=== PATIENT | female | born 2000 | race Hispanic/Latino ===

== ENCOUNTER 2021-08-06 09:44 | Inpatient (IN) | payer OTHER ==
[~2021-08-06 09:44] MED LIST: Bupivacaine 0.25% HCL 30 ML VIAL ONE; Bupivacaine PF 0.5% 30 ML VIAL ONE; Lidocaine 2% MPF 10 ML AMP (For Epidural Use) ONE; Terbutaline Sulfate 1 MG/ML VIAL ONE
[2021-08-06] MEDS ORDERED: hydrALAZINE 20 MG/ML VIAL SLOW IVP PRN ×2 (10:48→12:05)
[2021-08-06 11:33] LABS: Fetal Membranes Rupture RUPTURE DETECTED (No Rupture)
[2021-08-06] MEDS ORDERED: Methylergonovine 0.2 MG/ML VIAL IM PRN (12:05)
[2021-08-06] MEDS ORDERED: Promethazine HCl 25 MG/ML VIAL IM PRN (12:05)
[2021-08-06] MEDS ORDERED: Meperidine HCl/PF 25 MG/ML VIAL IM/IV PRN (12:05)
[2021-08-06] MEDS ORDERED: Ondansetron PF 4 MG/2 ML Vial IVP PRN (12:05)
[2021-08-06] MEDS ORDERED: Misoprostol 200 MCG TAB PR PRN (12:05)
[2021-08-06] MEDS ORDERED: HYDROcodone/Acetaminophen 5/325 mg Tablet PO PRN ×2 (12:05)
[2021-08-06] MEDS ORDERED: Lidocaine 1% (PF) 30 ML VIAL SC PRN (12:05)
[2021-08-06] MEDS ORDERED: Ibuprofen 800 MG TAB PO PRN (12:05)
[2021-08-06] MEDS ORDERED: Butorphanol Tartrate 1 MG/ML VIAL SLOW IVP PRN (12:05)
[2021-08-06] MEDS ORDERED: Carboprost 250 MCG/ML AMP IM PRN (12:05)
[2021-08-06] MEDS ORDERED: NS w/ Oxytocin 30 units 500 ML IV SCH ×2 (12:15)
[2021-08-06] MEDS ORDERED: Lactated Ringer's 1,000 ML IV SCH (12:15)
[2021-08-06 14:19] LABS: Hep B Surf Ag Non-Reactive S/CO (NonReactive); Syphilis Antibody Nonreactive (Nonreactive); Syphilis Antibody Index 0.07 S/CO (<1.00 Non-Reactive)
[2021-08-06 14:25] LABS: HBSAg Index 0.22 S/CO (0-0.99)
[2021-08-06 14:29] LABS: Hemoglobin 10.9 g/dL (12.0-15.5); Mean Corpuscular HGB CONC 32.8 g/dL (32.0-36.0); Mean Corpuscular Hemoglobin 27.7 pg (27.0-33.0); Mean Corpuscular Volume 84.3 fl (81.6-98.3); Mean Platelet Volume 12.3 fl (7.4-10.4); Platelet Count 153 10x3/uL (150-450); RBC Distribution Width 20.1 % (11.5-14.5); Red Blood Cell (RBC) Count 3.94 10x6/uL (3.90-5.03); White Blood Cell (WBC) Count 7.2 10x3/uL (3.5-10.5)
[2021-08-06 16:53] VITALS: BMI 32.2
[2021-08-06 17:38] LABS: SARS-CoV-2 NAA Rapid Test Not Detected (NotDetected)
[2021-08-06] MEDS: Misoprostol 100 MCG TAB VAG SCH (17:52)
[2021-08-06] MEDS: Lactated Ringer's 1,000 ML IV SCH (17:52)
[2021-08-07 07:06] LABS: #Eosinphils 0.1 10x3/uL (0.0-0.5); #Monocytes 0.4 10x3/uL (0.0-1.1); #Neutrophils 4.9 10x3/uL (1.5-8.4); %Basophils 0.5 % (0.0-2.0); %Eosinophils 0.7 % (0.0-6.0); %Lymphocytes 26.6 % (18.0-47.0); %Monocytes 5.2 % (0.0-10.0); %Neutrophils 65.9 % (40.0-75.0); Hemoglobin 11.5 g/dL (12.0-15.5); Mean Corpuscular Hemoglobin 27.6 pg (27.0-33.0); Mean Corpuscular Volume 83.7 fl (81.6-98.3); Mean Platelet Volume 11.6 fl (7.4-10.4); Platelet Count 141 10x3/uL (150-450); RBC Distribution Width 19.8 % (11.5-14.5); Red Blood Cell (RBC) Count 4.17 10x6/uL (3.90-5.03); White Blood Cell (WBC) Count 7.4 10x3/uL (3.5-10.5)
[2021-08-07 07:34] LABS: ALT (SGPT) 14 U/L (8-55); AST (SGOT) 18 U/L (5-34); Alkaline Phosphatase 223 U/L (40-100); Anion Gap 13 mmol/L (10-20); BUN (Urea Nitrogen) 7 mg/dL (7.0-18.7); Bilirubin, Total 0.3 mg/dL (0.2-1.2); Calc. Creatinine Clearance 169 mL/min (70-130); Calcium 8.6 mg/dL (7.8-10.44); Carbon Dioxide 21 mmol/L (22-29); Chloride 109 mmol/L (98-107); Glucose 77 mg/dL (70-105); Potassium 3.8 mmol/L (3.5-5.1); Sodium 139 mmol/L (136-145)
[2021-08-07] MEDS: Lactated Ringer's 1,000 ML IV SCH ×4 (07:49→13:27)
[2021-08-07] MEDS: Misoprostol 100 MCG TAB VAG SCH ×4 (07:49→18:58)
[2021-08-07] MEDS: Misoprostol 100 MCG TAB PO SCH (07:50)
[2021-08-07 10:32] LABS: Creatinine, Urine 36.34 mg/dL (47-110)
[2021-08-07] MEDS ORDERED: Fentanyl 2 mcg/Bup 0.1% Cadd 100 ML ONE (12:55)
[2021-08-07] MEDS ORDERED: Ondansetron PF 4 MG/2 ML Vial IVP PRN ×2 (14:01→22:32)
[2021-08-07] MEDS ORDERED: Hydrocerin (Eucerin) Cream 120 gm Jar TOP PRN ×2 (14:01→22:32)
[2021-08-07] MEDS ORDERED: Naloxone HCl 0.4 mg/ml Vial IVP PRN ×4 (14:01→22:32)
[2021-08-07] MEDS ORDERED: diphenhydrAMINE 50 MG/ML VIAL IVP PRN ×2 (14:01→22:32)
[2021-08-07] MEDS ORDERED: Promethazine HCl 25 MG/ML VIAL IM PRN ×2 (14:01→22:32)
[2021-08-07] MEDS ORDERED: ePHEDrine Sulfate 50 MG/10 ML VIAL SLOW IVP PRN (14:01)
[2021-08-07] MEDS ORDERED: Acetaminophen 325 MG TAB PO PRN (14:01)
[2021-08-07] MEDS ORDERED: Lactated Ringer's 500 ML IV PRN (14:01)
[2021-08-07] MEDS ORDERED: Fentanyl 2 mcg/Bupivacaine 0.1% Cassette 100 ML EPIDURAL SCH (14:15)
[2021-08-07] MEDS ORDERED: Communication Order-Pharmacy FS PRN (14:15)
[2021-08-07 15:32] LABS: Creatinine, Urine 86.73 mg/dL (47-110)
[2021-08-07] MEDS ORDERED: Magnesium Sulfate 20 gm/500 ml 20 GM/500 ML BAG ONE (17:13)
[2021-08-07] MEDS ORDERED: hydrALAZINE 20 MG/ML VIAL ONE (17:13)
[2021-08-07] MEDS ORDERED: Ondansetron PF 4 MG/2 ML Vial ONE ×2 (18:03→19:12)
[2021-08-07] MEDS ORDERED: Fentanyl 100 MCG/2 ML VIAL ONE (18:50)
[2021-08-07] MEDS ORDERED: Azithromycin 500 MG VIAL ONE (18:56)
[2021-08-07] MEDS ORDERED: Bicitra 30 ML UDCUP PO PRN (18:59)
[2021-08-07] MEDS ORDERED: Famotidine/PF 20 mg/2ml Vial SLOW IVP PRN (18:59)
[2021-08-07] MEDS ORDERED: CEFAZOLIN 2 GM in Premix Bag 1 BAG IVPB SCH (19:00)
[2021-08-07] MEDS ORDERED: Azithromycin 500 MG in Sodium Chloride 0.9% 250 ML 250 ML IVPB SCH (19:00)
[2021-08-07] MEDS ORDERED: Dexamethasone 4 mg/ml Vial ONE (19:12)
[2021-08-07] MEDS ORDERED: Morphine PF 10 MG/10 ML VIAL ONE (19:12)
[2021-08-07] MEDS ORDERED: Oxytocin 10 UNITS/ML VIAL ONE (19:13)
[2021-08-07] MEDS ORDERED: PHENYLEPHRINE-NS 100 MCG/ML 10 ML SYRINGE ONE (19:28)
[2021-08-07] MEDS ORDERED: Ketamine 50 MG/ML (10ML VIAL) ONE (19:42)
[2021-08-07] MEDS ORDERED: Promethazine HCl 25 MG SUPP PR PRN (22:32)
[2021-08-07] MEDS ORDERED: Ondansetron HCl/PF 4 MG/2 ML Vial IVP PRN (22:32)
[2021-08-07] MEDS ORDERED: Fentanyl 100 MCG/2 ML VIAL SLOW IVP PRN (22:32)
[2021-08-07] MEDS ORDERED: L&D-Morphine 4 MG/ML VIAL SLOW IVP PRN (22:32)
[2021-08-07] MEDS ORDERED: Meperidine HCl/PF 25 MG/ML VIAL SLOW IVP PRN (22:32)
[2021-08-07] MEDS ORDERED: Naloxone HCl 0.4 mg/ml Vial IV PRN (22:32)
[2021-08-07] MEDS ORDERED: Ketorolac Tromethamine 30 MG/ML VIAL IVP SCH (22:45)
[2021-08-07] MEDS ORDERED: Communication Order-Pharmacy FS SCH (22:45)
[2021-08-08] MEDS ORDERED: Magnesium Sulfate 20 gm/500 ml 20 GM/500 ML BAG ONE ×2 (02:53→13:55)
[2021-08-08] MEDS: Ketorolac Tromethamine 30 MG/ML VIAL IVP PRN ×2 (12:54→19:00)
[2021-08-08] MEDS ORDERED: Ondansetron PF 4 MG/2 ML Vial IVP PRN ×2 (14:08→22:22)
[2021-08-08] MEDS ORDERED: HYDROcodone/Acetaminophen 5/325 mg Tablet PO PRN ×3 (14:08→22:22)
[2021-08-08] MEDS ORDERED: Boostrix 0.5 ML (Tdap) VIAL IM ONE (14:08)
[2021-08-08] MEDS ORDERED: Prenatal Vitamin 1 TAB PO SCH (14:08)
[2021-08-08] MEDS ORDERED: Magnesium Sulfate 20 gm/500 ml 20 GM/500 ML BAG IVPB SCH (14:08)
[2021-08-08] MEDS ORDERED: diphenhydrAMINE 25 MG CAP PO PRN (14:08)
[2021-08-08] MEDS ORDERED: Acetaminophen/Codeine 30-300mg Tablet PO PRN (14:08)
[2021-08-08] MEDS ORDERED: Lanolin Ointment 7 GM TUBE TOP PRN (14:08)
[2021-08-08] MEDS ORDERED: Calcium Gluconate 4.6 MEQ in Sodium Chloride 0.9% 100 ML IVPB PRN (14:08)
[2021-08-08] MEDS ORDERED: Zolpidem Tartrate 5 MG TAB PO PRN (14:08)
[2021-08-08] MEDS ORDERED: hydrALAZINE 20 MG/ML VIAL SLOW IVP PRN ×2 (14:08→22:22)
[2021-08-08 14:55] LABS: Magnesium 6.5 mg/dL (1.7-2.2)
[2021-08-08] MEDS ORDERED: Simethicone Chewable 80 MG TAB PO PRN (22:22)
[2021-08-08] MEDS ORDERED: Acetaminophen 325 MG TAB PO PRN (22:22)
[2021-08-08] MEDS ORDERED: Ibuprofen 800 MG TAB PO SCH (22:30)
[2021-08-08] MEDS: Misoprostol 100 MCG TAB VAG SCH ×2 (23:12→23:13)
[2021-08-08] MEDS: Lactated Ringer's 1,000 ML IV SCH (23:13)
[2021-08-09] MEDS: Misoprostol 100 MCG TAB VAG SCH (00:21)
[2021-08-09] MEDS: HYDROcodone/Acetaminophen 5/325 mg Tablet PO PRN ×2 (01:20→09:23)
[2021-08-09] MEDS ORDERED: Ibuprofen 800 MG TAB PO SCH (06:00)
[2021-08-09] MEDS: Ibuprofen 800 MG TAB PO SCH ×3 (06:33→21:51)
[2021-08-09] MEDS: Prenatal Vitamin 1 TAB PO SCH (09:05)
[2021-08-09] MEDS ORDERED: NIFEdipine XL 30 MG TAB PO SCH (18:30)
[2021-08-10] MEDS: Ibuprofen 800 MG TAB PO SCH (05:31)
[2021-08-10] MEDS: Prenatal Vitamin 1 TAB PO SCH (08:53)
[2021-08-10 11:27] VITALS: BP 134/85; TEMP 99
== END 2021-08-10 14:49 | disposition home or self-care (01) | DRG 788 ==
LOC: CSHLD/OP 09:44 → CSHLD 16:59 → CSHPED 08-08 22:17
PROVIDERS: ADMIT Obstetrics & Gynecology; ATTEND Obstetrics & Gynecology
PROC: 10D00Z1 Extraction of Products of Conception, Low, Open Approach (ICD-10-PCS; principal; 2021-08-07)
DX: O62.1 Secondary uterine inertia (principal); O14.14 Severe pre-eclampsia complicating childbirth; Z3A.40 40 weeks gestation of pregnancy; Z37.0 Single live birth; Z20.822 Contact with and (suspected) exposure to COVID-19; O64.0XX0 Obstructed labor due to incomplete rotation of fetal head, not applicable or unspecified
CPT/HCPCS: 36415; 76815; 80053; 82570; 83735; 84112; 84156; 85025; 85027; 86780; 86850; 86900; 86901; 87340; J0360; J0595; J1100; J1885; J2274; J2405; J2590; J3010; J3105; J3475; J7120; S0020; U0002

== ENCOUNTER 2023-10-10 08:24 | Day surgery (SDC) | payer OTHER ==
[2023-10-10] MEDS ORDERED: Acetaminophen 500 MG TAB PO SCH (08:45)
[2023-10-10] MEDS ORDERED: Iron Sucrose Complex 500 MG in Sodium Chloride 0.9% 250 ML 250 ML IVPB SCH (08:45)
[2023-10-10] MEDS ORDERED: Acetaminophen 500 MG TAB ONE (08:47)
== END 2023-10-10 14:40 | disposition home or self-care (01) ==
LOC: CSHSDC 08:24
PROVIDERS: ATTEND Advanced Practice Midwife
DX: O99.019 Anemia complicating pregnancy, unspecified trimester (principal); D64.9 Anemia, unspecified; Z3A.00 Weeks of gestation of pregnancy not specified
CPT/HCPCS: J1756; J7050

== ENCOUNTER 2023-11-26 08:13 | Inpatient (IN) | payer OTHER ==
[2023-11-26] MEDS ORDERED: Ondansetron PF 4 MG/2 ML Vial IVP PRN ×2 (11:07→14:59)
[2023-11-26] MEDS ORDERED: Methylergonovine 0.2 MG/ML VIAL IM PRN (11:07)
[2023-11-26] MEDS ORDERED: Docusate 100 MG CAP PO PRN (11:07)
[2023-11-26] MEDS ORDERED: hydrALAZINE 20 MG/ML VIAL SLOW IVP PRN (11:07)
[2023-11-26] MEDS ORDERED: Carboprost 250 MCG/ML AMP IM PRN (11:07)
[2023-11-26] MEDS ORDERED: Tranexamic Acid 1,000 MG/10 ML VIAL IVP PRN (11:07)
[2023-11-26] MEDS ORDERED: Promethazine HCl 25 MG/ML VIAL IM PRN ×2 (11:07→14:59)
[2023-11-26] MEDS ORDERED: Lidocaine 1% (PF) 30 ML VIAL SC PRN (11:14)
[2023-11-26] MEDS ORDERED: Ibuprofen 800 MG TAB PO PRN (11:14)
[2023-11-26] MEDS ORDERED: Oxytocin 30 units/NS 500 ML 500 ML IV SCH (11:15)
[2023-11-26 11:39] VITALS: BMI 34.4
[2023-11-26] MEDS: Penicillin G Potassium 5 MILL.UNITS in Sodium Chloride 0.9% 100 ML IVPB SCH (12:23)
[2023-11-26 13:03] LABS: Hematocrit 37.1 % (34.9-44.5); Hemoglobin 11.9 g/dL (12.0-15.5); Mean Corpuscular HGB CONC 32.1 g/dL (32.0-36.0); Mean Corpuscular Hemoglobin 25.6 pg (27.0-33.0); Mean Platelet Volume 11.8 fl (7.4-10.4); Platelet Count 235 10x3/uL (150-450); RBC Distribution Width 20.4 % (11.5-14.5); Red Blood Cell (RBC) Count 4.64 10x6/uL (3.90-5.03); White Blood Cell (WBC) Count 10.5 10x3/uL (3.5-10.5)
[2023-11-26 13:55] LABS: Syphilis Antibody Nonreactive (Nonreactive); Syphilis Antibody Index 0.14 S/CO (<1.00 Non-Reactive)
[2023-11-26 13:56] LABS: Hep B Surf Ag - L&D Non-Reactive S/CO (NonReactive)
[2023-11-26] MEDS: fentaNYL/Ropivacaine Epidural 100 ML ONE (14:56)
[2023-11-26] MEDS ORDERED: Naloxone HCl 0.4 mg/ml Vial IVP PRN ×2 (14:59)
[2023-11-26] MEDS ORDERED: Lactated Ringer's 500 ML IV PRN (14:59)
[2023-11-26] MEDS ORDERED: diphenhydrAMINE 50 MG/ML VIAL IVP PRN (14:59)
[2023-11-26] MEDS ORDERED: ePHEDrine Sulfate 50 MG/10 ML VIAL SLOW IVP PRN (14:59)
[2023-11-26] MEDS ORDERED: Moisturizing Cream (Eucerin) 113 GM JAR TOP PRN (14:59)
[2023-11-26] MEDS ORDERED: Communication Order-Pharmacy FS SCH (15:00)
[2023-11-26] MEDS ORDERED: fentaNYL 2 mcg/Ropivacaine 0.2% Epidural 100 ML CADD EPIDURAL SCH (15:00)
[2023-11-26] MEDS: Penicillin G 2.5 MILL.units 2.5 MILL.UNITS in Premix 1 BAG IVPB SCH (16:41)
[2023-11-26] MEDS: Oxytocin 30 units/NS 500 ML 500 ML IV SCH (18:00)
[2023-11-26] MEDS: Acetaminophen 325 MG TAB PO PRN (20:28)
[2023-11-27] MEDS ORDERED: Preparation H Ointment 28 GM TUBE PR PRN (01:28)
[2023-11-27] MEDS ORDERED: HYDROcodone/Acetaminophen 5/325 mg Tablet PO PRN ×2 (01:28)
[2023-11-27] MEDS ORDERED: Bisacodyl 10 MG SUPP PR PRN (01:28)
[2023-11-27] MEDS ORDERED: Oxytocin 30 units/NS 500 ML 500 ML IV SCH (01:28)
[2023-11-27] MEDS ORDERED: Milk Of Magnesia 30 ML UDCUP PO PRN (01:28)
[2023-11-27] MEDS ORDERED: Misoprostol 200 MCG TAB VAG PRN (01:28)
[2023-11-27] MEDS ORDERED: hydrALAZINE 20 MG/ML VIAL SLOW IVP PRN (01:28)
[2023-11-27] MEDS ORDERED: Promethazine HCl 25 MG/ML VIAL IM PRN (01:28)
[2023-11-27] MEDS ORDERED: Benzocaine-Menthol 82.5 ML CAN TOP PRN (01:28)
[2023-11-27] MEDS: Ibuprofen 800 MG TAB PO SCH (05:55)
[2023-11-27] MEDS: Misoprostol 200 MCG TAB ONE (07:15)
[2023-11-27] MEDS: Measles/Mumps/Rubella 10 MCG/0.5 ML VIAL SC ONE (07:15)
[2023-11-27] MEDS: Boostrix 0.5 ML (Tdap) VIAL (>/=7 yrs of age) IM ONE (07:16)
[2023-11-27] MEDS ORDERED: Bupivacaine 0.25% HCL 30 ML VIAL ONE (08:00)
[2023-11-27] MEDS: Ferrous Sulfate 325 MG TAB PO SCH (08:28)
[2023-11-27] MEDS: Prenatal Vitamin 1 TAB PO SCH (08:28)
[2023-11-27] MEDS: Docusate 100 MG CAP PO SCH (08:28)
[2023-11-28 00:38] VITALS: TEMP 97.6
[2023-11-28 07:40] VITALS: BP 112/63
== END 2023-11-28 11:40 | disposition home or self-care (01) | DRG 807 ==
LOC: CSHLD/OP 08:13 → CSHLD 11:20 → CSHPED 11-27 01:25
PROVIDERS: ADMIT Obstetrics & Gynecology; ATTEND Obstetrics & Gynecology
PROC: 10E0XZZ Delivery of Products of Conception, External Approach (ICD-10-PCS; principal; 2023-11-26)
PROC: 0UQMXZZ Repair Vulva, External Approach (ICD-10-PCS; 2023-11-26)
PROC: 10907ZC Drainage of Amniotic Fluid, Therapeutic from Products of Conception, Via Natural or Artificial Opening (ICD-10-PCS; 2023-11-26)
DX: O99.824 Streptococcus B carrier state complicating childbirth (principal); Z37.0 Single live birth; Z3A.40 40 weeks gestation of pregnancy; O48.0 Post-term pregnancy; Z82.49 Family history of ischemic heart disease and other diseases of the circulatory system; Z83.3 Family history of diabetes mellitus; Z79.899 Other long term (current) drug therapy; O99.02 Anemia complicating childbirth; D50.9 Iron deficiency anemia, unspecified; O70.0 First degree perineal laceration during delivery; O64.0XX0 Obstructed labor due to incomplete rotation of fetal head, not applicable or unspecified
CPT/HCPCS: 51702; 76819; 85027; 86780; 86850; 86900; 86901; 87340; 99285; J0665; J2540; J2590; J3490